=== PATIENT | female | born 1935 | race Hispanic/Latino ===

== ENCOUNTER 2020-10-01 13:01 | Outpatient (CLI) | payer MEDICARE ==
--- NOTE | 2020-10-01 14:25 | Cat Scan Report ---
CT ABDOMEN AND PELVIS WITHOUT CONTRAST INDICATION / CLINICAL INFORMATION: URINARY TRACT INFECTION N39.0. TECHNIQUE: Axial CT images were obtained through the abdomen and pelvis without IV contrast. All CT scans at [facility] location are performed using CT dose reduction for ALARA by means of automated exposure control. COMPARISON: None available. FINDINGS: LOWER CHEST: No significant abnormality. LIVER: No significant abnormality. GALLBLADDER: No significant abnormality. BILE DUCTS: No significant abnormality. PANCREAS: No significant abnormality. SPLEEN: No significant abnormality. ADRENALS: No significant abnormality. RIGHT KIDNEY and URETER: No significant abnormality. LEFT KIDNEY and URETER: No significant abnormality. STOMACH and SMALL BOWEL: No significant abnormality. COLON: Large stool burden identified throughout the colon.. APPENDIX: Only partially visualized.. PERITONEUM: No free fluid. No free air. No fluid collection. LYMPH NODES: No significant adenopathy. AORTA and ARTERIES: Severe atherosclerotic calcification.. IVC and VEINS: No significant abnormality. URINARY BLADDER: No significant abnormality. REPRODUCTIVE ORGANS: No significant abnormality. ADDITIONAL FINDINGS: None. SKELETAL SYSTEM: No significant abnormality. IMPRESSION: No acute intra-abdominal abnormality identified within the limits of the noncontrast technique. Moder ate to large stool burden identified throughout the colon. Severe atherosclerotic calcification ident ified throughout the abdominal aorta. Signer Name: Jero Castillo MD Signed: 10/01/2020 2:20 PM Workstation Name: [id number]
== END 2020-10-01 13:02 | disposition home or self-care (01) ==
LOC: SPVIMAG 13:01
PROVIDERS: ATTEND Urology
DX: N39.0 Urinary tract infection, site not specified (principal); I70.0 Atherosclerosis of aorta; K56.41 Fecal impaction
CPT/HCPCS: 74176